=== PATIENT | male | born 1955 | race Caucasian/White ===

== ENCOUNTER → 2020-09-06 10:55 | Outpatient (CLI) | payer MEDICARE, BC, SELFPAY ==
--- NOTE | 2020-09-06 10:57 | DI.RAD.S_ITS ---
PROCEDURE: XR ANKLE LT MIN 3V INDICATIONS: pain to talus, r/o bony abnormality TECHNIQUE: 3 views of the ankle were acquired. COMPARISON: None. FINDINGS: Bones: No fractures or dislocations but there is lucency at the medial talar dome, seen on both oblique and straight AP views, but not identifiable on the lateral view. This appearance can represent evidence of an osteochondral injury in that area.. Ankle mortise is normally aligned. No suspicious bony lesions. Soft tissues: No tibiotalar joint effusion. Achilles tendon appears normal. IMPRESSION: Possible osteochondral injury causing lucency at the medial aspect of the talar dome. MR scanning may be warranted based on persistent pain and this finding. A nondisplaced osteochondral injury may be underestimated by plain film imaging and is accurately assessed by MR scanning. Dictated by: Oz Elliott M.D. on 09/06/2020 at 10:54 Approved by: Oz Elliott M.D. on 09/06/2020 at 10:57
--- NOTE | 2020-09-06 10:57 | DI.RAD.S_ITS ---
PROCEDURE: XR FOOT LT MIN 3V INDICATIONS: pain to talus, r/o bony abnormality TECHNIQUE: 3 views of the foot were acquired. COMPARISON: None. FINDINGS: Bones: No fractures identified. No dislocations. No suspicious bony lesions. Degenerative change in the forefoot. Small plantar calcaneal spur. Soft tissues: No tibiotalar joint effusion. Achilles tendon appears normal. IMPRESSION: No fracture identified. Please see separately dictated left foot ankle radiographs. Consider MRI for further evaluation. Dictated by: Rey Spann M.D. on 09/06/2020 at 12:21 Approved by: Rey Spann M.D. on 09/06/2020 at 12:25
== END ==
PROVIDERS: Referring Provider Physician Assistant; Visit Provider Physician Assistant
DX: M79.672 Pain in left foot (principal); M77.32 Calcaneal spur, left foot
CPT/HCPCS: 73610; 73630